=== PATIENT | male | born 1980 | race Caucasian/White ===

== ENCOUNTER 2016-11-26 13:51 | Outpatient (RCR) | payer BC, OTHER ==
--- OUTSIDE RECORDS SUMMARY | 2016-11-05 16:10 | XMS REPORT | Continuity of Care Document ---
Author Author [facility] Organization [facility] Address Unknown Phone Unavailable Care Team Providers Care Grab Setter Name Role Phone MARIZOL PETERS MD PCP Insurance Providers Payer Name Policy Number Subscriber Name Relationship [facility] [id number] Caleb Cadena 18 Self / Same As Patient Problems No known problems or medical conditions. Medications Medication Dose Route Sig Days/Qty Instructions Order Date Discontinued Date Status Acetaminophen/Hydrocodone Bitart 1 - 2 Each PO Q4HR PRN 20 Qty Active Promethazine HCl 1 Tab PO EVERY 6 HOURS 20 Qty 12/15/09 Active Social History Social History Problem Response Recorded Date/Time Recent Foreign Travel N ron stack 11/27/2014 9:35am Hospital Discharge Instructions No hospital discharge instructions. Plan of Care No plan of care. Functional Status No functional status results. Allergies, Adverse Reactions, Alerts Allergen Type Severity Reaction Status Last Updated No Known Allergies Allergy Mild Active 12/15/09 Immunizations No immunization records. Vital Signs No known vital signs results. Results Laboratory Results Test Name Result Units Flags Reference Collection Date/Time Result Date/ Time Comments White Blood Count 4.4 10^3/uL 4.3-11.0 01/29/2015 2:58pm 01/29/2015 3: 07pm Red Blood Count 4.87 10^6/uL 4.35-5.85 01/29/2015 2:58pm 01/29/2015 3: 07pm Hemoglobin 13.8 G/DL 13.3-17.7 01/29/2015 2:58pm 01/29/2015 3:07pm Hematocrit 43 % 40-54 01/29/2015 2:58pm 01/29/2015 3:07pm Mean Corpuscular Volume 88 FL 80-99 01/29/2015 2:58pm 01/29/2015 3: 07pm Mean Corpuscular Hemoglobin 28 PG 25-34 01/29/2015 2:58pm 01/29/2015 3: 07pm Mean Corpuscular Hemoglobin Concent 32 G/DL 32-36 01/29/2015 2:58pm 3:07pm Red Cell Distribution Width 14.8 % H 10.0-14.5 01/29/2015 2:58pm 2014 3:07pm Platelet Count 129 10^3/uL L 130-400 01/29/2015 2:58pm 01/29/2015 3:07pm Mean Platelet Volume 9.5 FL 7.4-10.4 01/29/2015 2:58pm 01/29/2015 3: 07pm Neutrophils (%) (Auto) 38 % L 42-75 01/29/2015 2:58pm 01/29/2015 3:07pm Lymphocytes (%) (Auto) 50 % H 12-44 01/29/2015 2:58pm 01/29/2015 3:07pm Monocytes (%) (Auto) 10 % 0-12 01/29/2015 2:58pm 01/29/2015 3:07pm Eosinophils (%) (Auto) 2 % 0-10 01/29/2015 2:58pm 01/29/2015 3:07pm Basophils (%) (Auto) 0 % 0-10 01/29/2015 2:58pm 01/29/2015 3:07pm Neutrophils # (Auto) 1.7 X 10^3 L 1.8-7.8 01/29/2015 2:58pm 01/29/2015 3: 07pm Lymphocytes # (Auto) 2.2 X 10^3 1.0-4.0 01/29/2015 2:58pm 01/29/2015 3: 07pm Monocytes # (Auto) 0.4 X 10^3 0.0-1.0 01/29/2015 2:58pm 01/29/2015 3: 07pm Eosinophils # (Auto) 0.1 10^3/uL 0.0-0.3 01/29/2015 2:58pm 01/29/2015 3 :07pm Basophils # (Auto) 0.0 10^3/uL 0.0-0.1 01/29/2015 2:58pm 01/29/2015 3: 07pm Neutrophils % (Manual) 61 % 11/09/2014 10:00am 11/09/2014 4:11pm Band Neutrophils 11 % 11/09/2014 10:00am 11/09/2014 4:11pm Lymphocytes % (Manual) 7 % 11/09/2014 10:00am 11/09/2014 4:11pm Monocytes % (Manual) 3 % 11/09/2014 10:00am 11/09/2014 4:11pm Eosinophils % (Manual) 1 % 11/09/2014 10:00am 11/09/2014 4:11pm Basophils % (Manual) 0 % 11/09/2014 10:00am 11/09/2014 4:11pm Metamyelocytes % 13 % 11/09/2014 10:00am 11/09/2014 4:11pm Reactive Lymphocytes 4 % 11/09/2014 10:00am 11/09/2014 4:11pm Hypersegmented Neutrophils SLIGHT 11/09/2014 10:00am 11/09/2014 4: 11pm Poikilocytosis MODERATE 11/09/2014 10:00am 11/09/2014 4:11pm Anisocytosis MODERATE 11/09/2014 10:00am 11/09/2014 4:11pm RARE GIANT PLATELET OBSERVED ON DIFFERENTIAL. Stomatocytes MODERATE 11/09/2014 10:00am 11/09/2014 4:11pm Rouleau SLIGHT 11/09/2014 10:00am 11/09/2014 4:11pm Absolute Reticulocyte Count 72 10e9/L 24-90 11/09/2014 10:00am 2014 3:58pm Percent Reticulocyte Count 1.38 % 0.50-2.40 11/09/2014 10:00am 2014 3:58pm Sodium Level 141 MMOL/L 135-145 01/29/2015 2:58pm 01/29/2015 3:53pm Potassium Level 3.9 MMOL/L 3.6-5.0 01/29/2015 2:58pm 01/29/2015 3:53pm Chloride Level 108 MMOL/L H 98-107 01/29/2015 2:58pm 01/29/2015 3:53pm Carbon Dioxide Level 25 MMOL/L 21-32 01/29/2015 2:58pm 01/29/2015 3: 53pm Blood Urea Nitrogen 8 MG/DL 7-18 01/29/2015 2:58pm 01/29/2015 3:53pm Creatinine 0.79 MG/DL 0.60-1.30 01/29/2015 2:58pm 01/29/2015 3:53pm BUN/Creatinine Ratio 10 01/29/2015 2:58pm 01/29/2015 3:53pm Estimat Glomerular Filtration Rate > 60 01/29/2015 2:58pm 2014 3:53pm GFR INTERPRETIVE DATA UNITS FOR ESTIMATED GFR (eGFR): mL/min/1.73 M2 REFERENCE RANGE FOR ESTIMATED GFR (eGFR) eGFR NORMAL eGFR >60 MODERATELY DECREASED eGFR 30-59 SEVERLY DECREASED eGFR 15-29 KIDNEY FAILURE <15 (OR DIALYSIS) Glucose Level 103 MG/DL 70-105 01/29/2015 2:58pm 01/29/2015 3:53pm Calcium Level 9.0 MG/DL 8.5-10.1 01/29/2015 2:58pm 01/29/2015 3:53pm Total Bilirubin 0.4 MG/DL 0.1-1.0 01/29/2015 2:58pm 01/29/2015 3:53pm Alkaline Phosphatase 68 U/L 40-136 01/29/2015 2:58pm 01/29/2015 3:53pm Aspartate Amino Transf (AST/SGOT) 23 U/L 5-34 01/29/2015 2:58pm 2014 3:53pm Alanine Aminotransferase (ALT/SGPT) 20 U/L 0-55 01/29/2015 2:58pm 01/29 3:53pm Lactate Dehydrogenase 205 U/L 125-220 01/29/2015 2:58pm 01/29/2015 3: 53pm Total Protein 6.2 G/DL L 6.4-8.2 01/29/2015 2:58pm 01/29/2015 3:53pm Albumin 4.2 G/DL 3.2-4.5 01/29/2015 2:58pm 01/29/2015 3:53pm Thyroid Stimulating Hormone (TSH) 1.23 UIU/ML 0.35-4.94 01/29/2015 2: 58pm 01/29/2015 4:17pm Procedures Procedure Status Date Provider(s) Tracing only of electrocardiogram completed 11/27/14 LEROY CAREY Tracing only of electrocardiogram completed 12/04/14 LEROY CAREY Encounters Encounter Location Date/Time Discharged Recurring Via [facility] 01/29/15 2:39pm
[2016-11-05 16:23] LABS: BASOPHILS # (AUTO) 0.1 10^3/uL (0.0-0.1); BASOPHILS % (AUTO) 1 % (0-10); EOSINOPHILS # (AUTO) 0.2 10^3/uL (0.0-0.3); EOSINOPHILS % (AUTO) 3 % (0-10); LYMPHOCYTES # (AUTO) 2.9 X 10^3 (1.0-4.0); LYMPHOCYTES % (AUTO) 38 % (12-44); MEAN CORPUSCULAR HEMOGLOBIN 30 PG (25-34); MEAN CORPUSCULAR HGB CONC 34 G/DL (32-36); MEAN CORPUSCULAR VOLUME 90 FL (80-99); MONOCYTES % (AUTO) 13 % (0-12); NEUTROPHILS # (AUTO) 3.6 X 10^3 (1.8-7.8); NEUTROPHILS % (AUTO) 46 % (42-75); PLATELET COUNT 114 10^3/uL (130-400); RED BLOOD COUNT 5.01 10^6/uL (4.35-5.85); RED CELL DISTRIBUTION WIDTH 13.4 % (10.0-14.5); WHITE BLOOD COUNT 7.8 10^3/uL (4.3-11.0)
[2016-11-05 16:44] LABS: ALANINE AMINOTRANSFERASE 39 U/L (0-55); ALBUMIN 4.4 G/DL (3.2-4.5); ANION GAP 9 MMOL/L (5-14); ASPARTATE AMINO TRANSFERASE 55 U/L (5-34); BILIRUBIN,TOTAL 0.6 MG/DL (0.1-1.0); BLOOD UREA NITROGEN 14 MG/DL (7-18); BUN/CREATININE RATIO 16; CALCIUM 9.5 MG/DL (8.5-10.1); CARBON DIOXIDE 24 MMOL/L (21-32); CHLORIDE 108 MMOL/L (98-107); CREATININE SERUM 0.87 MG/DL (0.60-1.30); GFR ESTIMATED > 60; GLUCOSE 115 MG/DL (70-105); LACTATE DEHYDROGENASE 190 U/L (125-220); POTASSIUM 3.8 MMOL/L (3.6-5.0); SODIUM 141 MMOL/L (135-145); TOTAL PROTEIN 6.5 G/DL (6.4-8.2)
[2016-11-11 08:30] LABS: BCR ABL GENE QT SEE FOOTNOTE
[~2016-11-26 13:51] MED LIST: DOXY100C2 PO; HYDR1TAB PO; PANT40TA2 PO; PRM25T PO
[2016-11-26 14:34] LABS: BASOPHILS # (AUTO) 0.1 10^3/uL (0.0-0.1); BASOPHILS % (AUTO) 1 % (0-10); EOSINOPHILS # (AUTO) 0.2 10^3/uL (0.0-0.3); EOSINOPHILS % (AUTO) 2 % (0-10); LYMPHOCYTES # (AUTO) 3.7 X 10^3 (1.0-4.0); LYMPHOCYTES % (AUTO) 38 % (12-44); MEAN CORPUSCULAR HEMOGLOBIN 30 PG (25-34); MEAN CORPUSCULAR HGB CONC 34 G/DL (32-36); MEAN CORPUSCULAR VOLUME 88 FL (80-99); MEAN PLATELET VOLUME 9.7 FL (7.4-10.4); MONOCYTES % (AUTO) 10 % (0-12); NEUTROPHILS # (AUTO) 4.8 X 10^3 (1.8-7.8); NEUTROPHILS % (AUTO) 49 % (42-75); PLATELET COUNT 147 10^3/uL (130-400); RED BLOOD COUNT 5.06 10^6/uL (4.35-5.85); WHITE BLOOD COUNT 9.8 10^3/uL (4.3-11.0)
[2016-11-26 15:02] LABS: ALANINE AMINOTRANSFERASE 41 U/L (0-55); ALBUMIN 4.5 G/DL (3.2-4.5); ANION GAP 12 MMOL/L (5-14); ASPARTATE AMINO TRANSFERASE 53 U/L (5-34); BILIRUBIN,TOTAL 0.8 MG/DL (0.1-1.0); BLOOD UREA NITROGEN 14 MG/DL (7-18); BUN/CREATININE RATIO 17; CALCIUM 9.4 MG/DL (8.5-10.1); CARBON DIOXIDE 23 MMOL/L (21-32); CHLORIDE 107 MMOL/L (98-107); CREATININE SERUM 0.83 MG/DL (0.60-1.30); GFR ESTIMATED > 60; GLUCOSE 97 MG/DL (70-105); POTASSIUM 3.7 MMOL/L (3.6-5.0); SODIUM 142 MMOL/L (135-145); TOTAL PROTEIN 6.3 G/DL (6.4-8.2)
== END 2017-02-03 | disposition home or self-care (01) ==
LOC: ONC 13:51
PROVIDERS: ATTEND Internal Medicine Hematology & Oncology
DX: C92.10 Chronic myeloid leukemia, BCR/ABL-positive, not having achieved remission (principal); Z79.899 Other long term (current) drug therapy
CPT/HCPCS: 36415; 80053; 81206; 83615; 84443; 85025; 99213

== ENCOUNTER 2017-05-11 14:38 | Outpatient (RCR) | payer OTHER ==
[2017-04-09 15:07] LABS: BASOPHILS # (AUTO) 0.1 10^3/uL (0.0-0.1); BASOPHILS % (AUTO) 1 % (0-10); EOSINOPHILS # (AUTO) 0.1 10^3/uL (0.0-0.3); EOSINOPHILS % (AUTO) 1 % (0-10); LYMPHOCYTES # (AUTO) 2.3 X 10^3 (1.0-4.0); LYMPHOCYTES % (AUTO) 32 % (12-44); MEAN CORPUSCULAR HEMOGLOBIN 31 PG (25-34); MEAN CORPUSCULAR HGB CONC 34 G/DL (32-36); MEAN CORPUSCULAR VOLUME 92 FL (80-99); MEAN PLATELET VOLUME 10.4 FL (7.4-10.4); MONOCYTES # (AUTO) 0.7 X 10^3 (0.0-1.0); MONOCYTES % (AUTO) 10 % (0-12); NEUTROPHILS # (AUTO) 4.1 X 10^3 (1.8-7.8); NEUTROPHILS % (AUTO) 57 % (42-75); PLATELET COUNT 143 10^3/uL (130-400); RED BLOOD COUNT 4.93 10^6/uL (4.35-5.85); RED CELL DISTRIBUTION WIDTH 13.8 % (10.0-14.5); WHITE BLOOD COUNT 7.2 10^3/uL (4.3-11.0)
[2017-04-09 15:31] LABS: ALANINE AMINOTRANSFERASE 74 U/L (0-55); ALBUMIN 4.5 G/DL (3.2-4.5); ANION GAP 9 MMOL/L (5-14); ASPARTATE AMINO TRANSFERASE 95 U/L (5-34); BILIRUBIN,TOTAL 0.8 MG/DL (0.1-1.0); BLOOD UREA NITROGEN 10 MG/DL (7-18); BUN/CREATININE RATIO 11; CALCIUM 9.3 MG/DL (8.5-10.1); CARBON DIOXIDE 26 MMOL/L (21-32); CHLORIDE 106 MMOL/L (98-107); GFR ESTIMATED > 60; GLUCOSE 92 MG/DL (70-105); LACTATE DEHYDROGENASE 217 U/L (125-220); POTASSIUM 4.2 MMOL/L (3.6-5.0); SODIUM 141 MMOL/L (135-145); TOTAL PROTEIN 6.5 G/DL (6.4-8.2)
[2017-04-15 09:19] LABS: BCR ABL GENE QT SEE FOOTNOTE
[2017-05-11 15:32] LABS: CARBON DIOXIDE 26 MMOL/L (21-32); CHLORIDE 107 MMOL/L (98-107); POTASSIUM 4.2 MMOL/L (3.6-5.0); SODIUM 141 MMOL/L (135-145)
[2017-05-11 15:33] LABS: ALANINE AMINOTRANSFERASE 72 U/L (0-55); ALBUMIN 4.3 GM/DL (3.2-4.5); ANION GAP 8 MMOL/L (5-14); ASPARTATE AMINO TRANSFERASE 120 U/L (5-34); BILIRUBIN,TOTAL 0.8 MG/DL (0.1-1.0); BLOOD UREA NITROGEN 11 MG/DL (7-18); BUN/CREATININE RATIO 14; CALCIUM 9.4 MG/DL (8.5-10.1); GFR ESTIMATED > 60; GLUCOSE 83 MG/DL (70-105); TOTAL PROTEIN 6.6 GM/DL (6.4-8.2)
[2017-05-11 15:54] LABS: THYROID STIMULATING HORMONE 1.24 UIU/ML (0.35-4.94)
== END 2017-07-08 | disposition home or self-care (01) ==
LOC: ONC 14:38
PROVIDERS: ATTEND Internal Medicine Hematology & Oncology
DX: C92.10 Chronic myeloid leukemia, BCR/ABL-positive, not having achieved remission (principal); Z79.899 Other long term (current) drug therapy
CPT/HCPCS: 36415; 80053; 81206; 83615; 84443; 85025; 99213

== ENCOUNTER 2022-06-24 08:54 | Outpatient (RCR) | payer OTHER ==
[~2022-06-24 08:54] MED LIST changes: -DOXY100C2 PO; +DOXY100C5 PO
[2022-06-24 10:06] LABS: BASOPHILS # (AUTO) 0.1 10^3/uL (0.0-0.1); BASOPHILS % (AUTO) 2 % (0-10); EOSINOPHILS # (AUTO) 0.1 10^3/uL (0.0-0.3); EOSINOPHILS % (AUTO) 1 % (0-10); HEMATOCRIT 48 % (40-54); HEMOGLOBIN 16.7 g/dL (13.3-17.7); LYMPHOCYTES # (AUTO) 1.2 10^3/uL (1.0-4.0); LYMPHOCYTES % (AUTO) 25 % (12-44); MEAN CORPUSCULAR HEMOGLOBIN 33 pg (25-34); MEAN CORPUSCULAR HGB CONC 35 g/dL (32-36); MEAN CORPUSCULAR VOLUME 95 fL (80-99); MEAN PLATELET VOLUME 10.8 fL (9.0-12.2); MONOCYTES # (AUTO) 0.6 10^3/uL (0.0-1.0); MONOCYTES % (AUTO) 13 % (0-12); NEUTROPHILS # (AUTO) 2.9 10^3/uL (1.8-7.8); NEUTROPHILS % (AUTO) 59 % (42-75); PLATELET COUNT 148 10^3/uL (130-400); WHITE BLOOD COUNT 4.9 10^3/uL (4.3-11.0)
[2022-06-24 10:32] LABS: ALBUMIN 4.2 GM/DL (3.2-4.5); BILIRUBIN,TOTAL 1.6 MG/DL (0.1-1.0); CALCIUM 8.9 MG/DL (8.5-10.1); CREATININE SERUM 0.85 MG/DL (0.60-1.30); POTASSIUM 3.2 MMOL/L (3.6-5.0); TOTAL PROTEIN 6.7 GM/DL (6.4-8.2)
== END 2022-07-02 | disposition home or self-care (01) ==
LOC: ONC 08:54
PROVIDERS: ATTEND Internal Medicine Hematology & Oncology
DX: C92.10 Chronic myeloid leukemia, BCR/ABL-positive, not having achieved remission (principal)
CPT/HCPCS: 36415; 80053; 81206; 85025; 88377; 99204

== ENCOUNTER 2022-09-30 14:58 | Outpatient (RCR) | payer OTHER ==
[2022-09-30 15:20] LABS: BASOPHILS # (AUTO) 0.1 10^3/uL (0.0-0.1); BASOPHILS % (AUTO) 2 % (0-10); EOSINOPHILS # (AUTO) 0.1 10^3/uL (0.0-0.3); EOSINOPHILS % (AUTO) 3 % (0-10); HEMATOCRIT 47 % (40-54); LYMPHOCYTES # (AUTO) 1.6 X 10^3 (1.0-4.0); LYMPHOCYTES % (AUTO) 35 % (12-44); MEAN CORPUSCULAR HEMOGLOBIN 33 pg (25-34); MEAN CORPUSCULAR HGB CONC 34 g/dL (32-36); MEAN CORPUSCULAR VOLUME 97 fL (80-99); MEAN PLATELET VOLUME 10.9 fL (9.0-12.2); MONOCYTES # (AUTO) 0.6 X 10^3 (0.0-1.0); MONOCYTES % (AUTO) 12 % (0-12); NEUTROPHILS # (AUTO) 2.2 X 10^3 (1.8-7.8); NEUTROPHILS % (AUTO) 48 % (42-75); PLATELET COUNT 121 10^3/uL (130-400); WHITE BLOOD COUNT 4.6 10^3/uL (4.3-11.0)
[2022-09-30 15:32] LABS: BILIRUBIN,TOTAL 0.8 MG/DL (0.1-1.0); CALCIUM 8.5 MG/DL (8.5-10.1); CREATININE SERUM 0.69 MG/DL (0.60-1.30); POTASSIUM 3.4 MMOL/L (3.6-5.0); TOTAL PROTEIN 6.3 GM/DL (6.4-8.2)
== END 2022-10-01 ==
LOC: ONC 14:58
PROVIDERS: ATTEND Internal Medicine Hematology & Oncology
DX: C92.10 Chronic myeloid leukemia, BCR/ABL-positive, not having achieved remission (principal)
CPT/HCPCS: 36415; 80053; 81206; 85025; 88377; 99213

== ENCOUNTER 2023-03-31 15:16 | Outpatient (RCR) | payer OTHER ==
[2023-03-31 15:36] LABS: HEMOGLOBIN 15.2 g/dL (13.3-17.7); NEUTROPHILS # (AUTO) 3.5 10^3/uL (1.8-7.8)
[2023-03-31 15:37] LABS: BASOPHILS # (AUTO) 0.1 10^3/uL (0.0-0.1); BASOPHILS % (AUTO) 1 % (0-10); EOSINOPHILS # (AUTO) 0.1 10^3/uL (0.0-0.3); EOSINOPHILS % (AUTO) 2 % (0-10); HEMATOCRIT 45 % (40-54); LYMPHOCYTES # (AUTO) 1.1 10^3/uL (1.0-4.0); LYMPHOCYTES % (AUTO) 19 % (12-44); MEAN CORPUSCULAR HEMOGLOBIN 32 pg (25-34); MEAN CORPUSCULAR HGB CONC 34 g/dL (32-36); MEAN CORPUSCULAR VOLUME 95 fL (80-99); MEAN PLATELET VOLUME 11.1 fL (9.0-12.2); MONOCYTES # (AUTO) 0.7 10^3/uL (0.0-1.0); MONOCYTES % (AUTO) 13 % (0-12); NEUTROPHILS % (AUTO) 65 % (42-75); PLATELET COUNT 142 10^3/uL (130-400); WHITE BLOOD COUNT 5.5 10^3/uL (4.3-11.0)
[2023-03-31 15:56] LABS: ALBUMIN 4.3 GM/DL (3.2-4.5); BILIRUBIN,TOTAL 1.4 MG/DL (0.1-1.0); CALCIUM 9.9 MG/DL (8.5-10.1); CREATININE SERUM 0.83 MG/DL (0.60-1.30); POTASSIUM 3.6 MMOL/L (3.6-5.0); TOTAL PROTEIN 6.4 GM/DL (6.4-8.2)
== END 2023-04-01 | disposition home or self-care (01) ==
LOC: ONC 15:16
PROVIDERS: ATTEND Internal Medicine Hematology & Oncology
DX: C92.10 Chronic myeloid leukemia, BCR/ABL-positive, not having achieved remission (principal)
CPT/HCPCS: 36415; 80053; 81206; 85025